=== PATIENT | female | born 1965 | race African-American/Black ===

== ENCOUNTER 2020-04-25 10:00 | Emergency (ER) | payer MEDICARE ==
[~2020-04-25] VITALS: Ht 175.3 cm; Wt 117.0 kg
[2020-04-25 12:23] LABS: IMMATURE GRANULOCYTES 1.3 % (0.0-5.0); MEAN CORPUSCULAR HGB 37.9 pG CALC (26.0-32.0); MEAN CORPUSCULAR HGB CONC 34.1 g/dL CAL (32.0-36.0); NEUT# 3.3 thou/uL (2.00-7.15); RED BLOOD COUNT 1.95 mill/uL (4.20-5.60); RED CELL DISTRI WIDTH 16.1 % (11.5-15.5)
[2020-04-25 12:39] LABS: ACT PARTIAL THROMBO TIME 33.7 SECONDS (20.0-32.5); ALBUMIN 3.4 g/dL (3.2-5.0); BILIRUBIN, TOTAL 0.5 mg/dL (0.0-1.4); PROTHROMBIN TIME 10.4 SECONDS (9.0-12.5); TOTAL PROTEIN 7.5 g/dL (6.3-8.2)
[2020-04-25 12:40] LABS: POTASSIUM 4.9 mmol/l (3.5-5.1)
[2020-04-25 12:41] LABS: CREATININE 13.3 mg/dL (0.5-1.0)
[2020-04-25] MEDS ORDERED: AMLOD/BENAZP1 CAP PO (12:57)
[2020-04-25] MEDS ORDERED: DIVALPROEX SOD250 MG PO (12:57)
[2020-04-25 12:59] LABS: HEMATOCRIT 21.7 % (37.0-47.0); HEMOGLOBIN 7.4 g/dl (12.0-16.0); MEAN CELL VOLUME 111.3 fL CALC (80.0-100.0)
[2020-04-25] MEDS ORDERED: ISOSORB MONO30 MG PO (13:00)
[2020-04-25] MEDS ORDERED: SMZ-TMP DS1 TAB PO (13:00)
[2020-04-25] MEDS ORDERED: RENVELA800 MG PO (13:01)
[2020-04-25 14:40] VITALS: BP 134/63
--- NOTE | 2020-04-27 08:44 | NUR ---
PER PIPPA IN MICRO, PRELIM BLOOD CX RESULTS SHOW GRAM POSITIVE COCCI IN 2 BOTTLES, DIFF SETS. PT WAS TRANSFERRED TO [facility], RESULTS CALLED TO PEDRO LUIS AND FAXED TO [phone]. WILL F/U WITH FINAL
== END 2020-04-25 14:35 | disposition short-term general hospital (02) ==
LOC: ED 10:00
DX: I12.0 Hypertensive chronic kidney disease with stage 5 chronic kidney disease or end stage renal disease (principal); E11.22 Type 2 diabetes mellitus with diabetic chronic kidney disease; N18.6 End stage renal disease; D64.9 Anemia, unspecified; E87.1 Hypo-osmolality and hyponatremia; I20.0 Unstable angina; H54.7 Unspecified visual loss; Z99.2 Dependence on renal dialysis; Z20.822 Contact with and (suspected) exposure to COVID-19

== ENCOUNTER 2020-05-16 12:18 | Emergency (ER) | payer MEDICARE ==
[~2020-05-16] VITALS: Ht 175.3 cm; Wt 131.6 kg
[~2020-05-16 12:18] MED LIST: AMLOD/BENAZP1 CAP PO; DIVALPROEX SOD250 MG PO; ISOSORB MONO30 MG PO; RENVELA800 MG PO; SMZ-TMP DS1 TAB PO
[2020-05-16 13:30] LABS: HEMATOCRIT 25.6 % (37.0-47.0); HEMOGLOBIN 8.4 g/dl (12.0-16.0); IMMATURE GRANULOCYTES 0.2 % (0.0-5.0); MEAN CELL VOLUME 111.3 fL CALC (80.0-100.0); MEAN CORPUSCULAR HGB 36.5 pG CALC (26.0-32.0); MEAN CORPUSCULAR HGB CONC 32.8 g/dL CAL (32.0-36.0); NEUT# 2.28 thou/uL (2.00-7.15); RED BLOOD COUNT 2.3 mill/uL (4.20-5.60); RED CELL DISTRI WIDTH 18.2 % (11.5-15.5)
[2020-05-16 13:45] LABS: INTERNATIONAL NORMALIZED RATIO 1.1 RATIO (0.7-1.3); PROTHROMBIN TIME 11.3 SECONDS (9.0-12.5)
[2020-05-16 13:46] LABS: ALBUMIN 3.5 g/dL (3.2-5.0); BILIRUBIN, TOTAL 0.6 mg/dL (0.0-1.4); TOTAL PROTEIN 7.9 g/dL (6.3-8.2)
[2020-05-16 13:51] LABS: CREATININE 8.1 mg/dL (0.5-1.0); POTASSIUM 3.8 mmol/l (3.5-5.1)
[2020-05-16 15:58] LABS: URINE BILIRUBIN - DIPSTICK NEGATIVE (NEGATIVE); URINE BLOOD DIPSTICK LARGE (NEGATIVE); URINE COLOR BROWN; URINE GLUCOSE - DIPSTICK NEGATIVE (NEGATIVE); URINE KETONE NEGATIVE (NEGATIVE); URINE NITRITE - DIPSTICK NEGATIVE (Negative); URINE PH 6.5 (4.5-8.0); URINE PROTEIN - DIPSTICK >=300 mg/dL (NEG-TRACE); URINE UROBILINOGEN - DIPSTICK 0.2 E.U./dL (0.2)
[2020-05-16 16:01] LABS: URINE LEUK ESTERASE MODERATE (NEGATIVE)
[2020-05-16 16:04] LABS: URINE RBC 25-50 RBC/hpf (0-5); URINE SQUAMOUS EPITHELIAL CELL MODERATE EPI/hpf (0-FEW); URINE WBC 20-50 WBC/hpf (0-5)
[2020-05-16 16:05] LABS: URINE AMORPH SEDIMENT MANY hpf (NONE-FEW)
[2020-05-16] MEDS ORDERED: OMEPRAZOLE DR20 MG PO (16:40)
[2020-05-16] MEDS ORDERED: LISINOPRIL20 MG PO (16:41)
[2020-05-16] MEDS ORDERED: NORVASC2.5 M1 PO (16:41)
[2020-05-16] MEDS ORDERED: METOPROL TAR25 MG PO (16:41)
[2020-05-16] MEDS ORDERED: SIMVASTATIN5 MG PO (16:41)
[2020-05-16 17:20] VITALS: BP 128/68
== END 2020-05-16 17:20 | disposition home or self-care (01) ==
LOC: ED 12:18
PROVIDERS: Student in an Organized Health Care Education/Training Program
DX: R53.1 Weakness (principal); D64.9 Anemia, unspecified; I12.0 Hypertensive chronic kidney disease with stage 5 chronic kidney disease or end stage renal disease; E11.22 Type 2 diabetes mellitus with diabetic chronic kidney disease; N18.6 End stage renal disease; I20.0 Unstable angina; Z99.2 Dependence on renal dialysis; Z20.822 Contact with and (suspected) exposure to COVID-19

== ENCOUNTER 2020-05-24 01:42 | Emergency (ER) | payer MEDICARE ==
[~2020-05-24] VITALS: Ht 175.3 cm; Wt 113.0 kg
[~2020-05-24 01:42] MED LIST changes: +LISINOPRIL20 MG PO; +METOPROL TAR25 MG PO; +NORVASC2.5 M1 PO; +OMEPRAZOLE DR20 MG PO; +SIMVASTATIN5 MG PO
[2020-05-24] MEDS ORDERED: ISOSORB MONO30 MG PO (02:28)
[2020-05-24] MEDS ORDERED: RENVELA800 MG PO (02:29)
[2020-05-24] MEDS ORDERED: OXYCODONE10 M1 PO (02:29)
[2020-05-24] MEDS ORDERED: COLACE100 MG PO (02:36)
[2020-05-24 02:40] VITALS: BP 180/70
== END 2020-05-24 02:45 | disposition home or self-care (01) ==
LOC: ED 01:42
DX: K59.00 Constipation, unspecified (principal); E11.22 Type 2 diabetes mellitus with diabetic chronic kidney disease; I12.0 Hypertensive chronic kidney disease with stage 5 chronic kidney disease or end stage renal disease; N18.6 End stage renal disease; H54.8 Legal blindness, as defined in USA; Z99.2 Dependence on renal dialysis